=== PATIENT | female | born 1990 | race Hispanic/Latino ===

== ENCOUNTER 2016-11-15 11:23 | Day surgery (SDC) | payer OTHER ==
[~2016-11-15 11:23] MED LIST: NACL 0.9% 1000 ML 1,000 ML IV SCH; PEPCID IV NR; VERSED IV NR
[2016-11-15] MEDS ORDERED: NORCO 5/325 PO PRN (13:16)
[2016-11-15] MEDS ORDERED: TORADOL IV PRN (13:16)
--- NOTE | 2016-11-15 13:21 | Anesthesia Consultation ---
Anesthesia Consult and Med Hx Date of service: 11/15/16 - Airway Anesthetic Teeth Evaluation: Good ROM Head & Neck: Adequate Mental/Hyoid Distance: Adequate Mallampati Class: Class II Intubation Access Assessment: Probably Good - Pulmonary Exam CTA: Yes - Cardiac Exam Cardiac Exam: RRR - Pre-Operative Health Status ASA Pre-Surgery Classification: ASA3 Proposed Anesthetic Plan: General - Pulmonary Hx Smoking: No Hx Asthma: Yes ( CHILD ONLY) Hx Sleep Apnea: No (SENDY PRE SCREEN HIGH RISK) - Cardiovascular System Hx Hypertension: No - Central Nervous System Hx Back Pain: Yes (FROM STONES) Hx Psychiatric Problems: Yes - Other Systems Hx Substance Use: Yes (OCC MARIJUANA) Hx Cancer: No Hx Obesity: Yes (MORBID, BMI > 40) - Additional Comments Anesthesia Medical History Comments: PONV
--- NOTE | 2016-11-15 13:21 | Anesthesia Day of Surgery ---
Anesthesia Day of Surgery - Day of Surgery Patient Examined: Yes Patient H&P Reviewed: Yes Patient is NPO: Yes
[2016-11-15] MEDS ORDERED: NACL BACTERIOSTATIC INFILTRATI ONE (13:29)
[2016-11-15] MEDS ORDERED: TRANSDERM-SCOP TD NR (14:00)
[2016-11-15] MEDS ORDERED: ANCEF/STERILE WATER 2 GM/20 ML IV NR (14:00)
[2016-11-15] MEDS ORDERED: REGLAN IV NR (14:00)
[2016-11-15] MEDS ORDERED: LACTATED RINGERS 1,000 ML ONE ×2 (14:01→14:55)
[2016-11-15] MEDS ORDERED: DIPRIVAN 10 MG/ML IV ONE (14:03)
[2016-11-15] MEDS ORDERED: XYLOCAINE MPF 2% ONE (14:03)
[2016-11-15] MEDS ORDERED: DILAUDID ONE (14:03)
[2016-11-15] MEDS ORDERED: LACTATED RINGERS 1,000 ML IV SCH ×2 (14:04→15:00)
--- NOTE | 2016-11-15 14:06 | Short Stay Summary ---
Short Stay Documentation Date of service: 11/15/16 - History H&P: obtained from office - Allergies and Medications Current Medications: Allergies No Known Allergies Allergy (Verified 11/14/16 11:33) Home Medications Medication Instructions Recorded Confirmed Last Taken Type FLUoxetine HCL [PROzac] 40 mg PO QDAY 11/14/16 11/14/16 11/15/16 10:00 History Oxycodone HCl/Acetaminophen 1 tab PO PRN PRN 11/14/16 11/14/16 11/15/16 10:00 History [Percocet 10/325 mg] Promethazine [Phenergan TAB] 25 mg PO Q6HR PRN 11/14/16 11/15/16 11/10/16 History Sulfamethoxazole/Trimethoprim 1 each PO BID 11/14/16 11/14/16 11/14/16 History [Bactrim DS TAB] Active Medications Cefazolin Sodium (Ancef/Sterile Water 2 Gm/20 Ml) 2 gm IV PREOP NR Stop: 11/15/16 23:59 Famotidine (Pepcid) 20 mg IV PREOP NR Stop: 11/15/16 23:00 Last Admin: 11/15/16 13:43 Dose: 20 mg Sodium Chloride (Nacl 0.9% 1000 Ml) 1,000 mls @ 75 mls/hr IV DIRECT SHYLA Last Admin: 11/15/16 13:35 Dose: 75 mls/hr Metoclopramide HCl (Reglan) 10 mg IV PREOP NR Stop: 11/15/16 23:59 Last Admin: 11/15/16 13:48 Dose: 10 mg Midazolam HCl (Versed) 1 mg IV PREOP NR Stop: 11/15/16 23:59 Last Admin: 11/15/16 13:50 Dose: 1 mg Morphine Sulfate (Morphine) 2 mg IV Q10MIN PRN PRN Reason: Pain, Moderate (4-6) Stop: 11/18/16 13:17 Scopolamine (Transderm-Scop) 1 each TD PREOP NR Stop: 11/16/16 13:59 Last Admin: 11/15/16 13:46 Dose: 1 each - Brief post op/procedure progress note Date of procedure: 11/15/16 Pre-op diagnosis: stefan uret stone 3mm, stefan renal stones Post-op diagnosis: same Procedure: cysto, rpg, stefan stent; 4.7 x26 right urs Anesthesia: GETA Findings: right no uret stone Surgeon: ANNEMARIE MEDINA Estimated blood loss: minimal Pathology: none Condition: stable - Hospital course Hospital course: orpacuhome - Disposition Condition at discharge: Good Disposition: DC-01 TO HOME OR SELFCARE Short Stay Discharge Plan Activity: advance as tolerated Diet: advance as tolerated Follow up with: ANNEMARIE MEDINA MD [Staff Physician] - 7 Days Prescriptions: Oxycodone HCl/Acetaminophen [Percocet 10/325 mg] 0.5 - 1 each PO Q6HR PRN #30 tablet PRN Reason: Pain Sulfamethoxazole/Trimethoprim [Bactrim DS TAB] 1 each PO BID #10 tablet
[2016-11-15] MEDS ORDERED: ePHEDrine SULFATE ONE (14:30)
[2016-11-15] MEDS ORDERED: ZOFRAN ONE (14:42)
[2016-11-15] MEDS: MORPHINE IV PRN ×2 (15:25→16:54)
[2016-11-15 16:35] LABS: Anion Gap 15 mmol/L; BUN/Creatinine Ratio 16.66; Blood Urea Nitrogen 10 mg/dL (7-17); Calcium 8.6 mg/dL (8.4-10.2); Carbon Dioxide 28 mmol/L (22-30); Glucose 87 mg/dL (65-100); Sodium 141 mmol/L (137-145)
[2016-11-15] MEDS ORDERED: PERCOCET 5/325 PO PRN (16:47)
[2016-11-15 17:16] VITALS: BP 122/66
--- NOTE | 2016-11-16 09:27 | Fluoroscopy Report ---
Retrograde pyelogram. History: Renal stones. Findings: An ovoid shaped stone is seen within the left kidney. Opacification of the left i system demonstrates normal collecting elements with the stone in the lower pole collecting system. The left ureter is normal. The right calyceal system is unremarkable. The right ureter is normal in caliber. On the final image, bilateral ureteral stents are demonstrated in satisfactory position.
--- NOTE | 2016-12-02 11:41 | Operative Report ---
PREOPERATIVE DIAGNOSIS: Bilateral ureteral stones. POSTOPERATIVE DIAGNOSIS: Bilateral ureteral stones. PROCEDURE: Cystoscopy, bilateral stent placement, right ureteroscopy. SURGEON: Faizan Love M.D. ANESTHESIA: General. SPECIMENS: None. ESTIMATED BLOOD LOSS: Minimal. COMPLICATIONS: None. FINDINGS: No right ureteral stone. CLINICAL INDICATIONS: Counseled RCBA, antibiotics, SCDs. The patient has a history of going to [facility] 2 to 3 times, 3 times, had a CT done with stones identified in the right ureter. She has main complaints of right flank pain. Also, there was stone what appeared to be likely in the left intramural ureter with minimal pain on this side. She was counseled ___ the plan was for a smaller stent with procedure. DESCRIPTION OF PROCEDURE: The patient had antibiotics, SCDs, was transferred to OR suite in supine position, anesthesia, dorsal lithotomy, prepped and draped in standard fashion. A 22 Vietnamese scope passed. Pancystoscopy 30 and 70 degree lens, no tumors or lesions. Left retrograde pyelogram demonstrated normal left distal ureter, proximal ureter, renal pelvis calyces. Right retrograde demonstrates mild right hydroureter, no air filling defect with very small stone, on reports these stones were only 2-3 mm and the patient was having some pain before procedure. At this point, a Glidewire was passed at the left renal pelvis. A 4.7-Vietnamese stent was passed good proximal and distal stent the right side wire had been passed. A rigid ureteroscope wire was passed up the ureter. No stones identified passed up to the renal pelvis, no significant stones identified and passive dilation. At this point, the scope was withdrawn and a 4.7 Vietnamese stent was passed over the wire under direct fluoroscopic visualization when the wire and string removed, nice proximal and distal J. Bladder irrigated, scope was removed and drained. The patient awakened, transferred to PACU in good and stable condition. PLAN: The patient is staged for future left ureteroscopy as well as stent removals on the right and left. JOB# [id number] ATS/NTS
== END 2016-11-15 17:10 | disposition home or self-care (01) ==
LOC: OR 11:23
PROVIDERS: ATTEND Urology
DX: N20.1 Calculus of ureter (principal); F12.90 Cannabis use, unspecified, uncomplicated; F15.90 Other stimulant use, unspecified, uncomplicated; E11.9 Type 2 diabetes mellitus without complications; E66.01 Morbid (severe) obesity due to excess calories; Z68.43 Body mass index [BMI] 50.0-59.9, adult; Z98.890 Other specified postprocedural states; Z79.84 Long term (current) use of oral hypoglycemic drugs; Z82.61 Family history of arthritis; Z82.3 Family history of stroke; Z80.3 Family history of malignant neoplasm of breast; Z82.0 Family history of epilepsy and other diseases of the nervous system; Z82.49 Family history of ischemic heart disease and other diseases of the circulatory system; Z84.1 Family history of disorders of kidney and ureter; Z83.3 Family history of diabetes mellitus; Z82.69 Family history of other diseases of the musculoskeletal system and connective tissue
CPT/HCPCS: 36415; 52332; 74420; 80048; 81025; 82962; C1726; C1758; C1769; C2617; J0690; J1170; J2250; J2270; J2405; J2704; J2765; J7030; J7120; Q9967

== ENCOUNTER 2016-11-29 14:17 | Day surgery (SDC) | payer OTHER ==
[~2016-11-29 14:17] MED LIST changes: -PEPCID IV NR; +PEPCID PO NR
--- NOTE | 2016-11-29 16:10 | Anesthesia Day of Surgery ---
Anesthesia Day of Surgery - Day of Surgery Patient Examined: Yes Patient H&P Reviewed: Yes Patient is NPO: Yes
--- NOTE | 2016-11-29 16:10 | Anesthesia Consultation ---
Anesthesia Consult and Med Hx Date of service: 11/29/16 - Airway Anesthetic Teeth Evaluation: Good ROM Head & Neck: Adequate Mental/Hyoid Distance: Adequate Mallampati Class: Class III Intubation Access Assessment: Possibly Difficult - Pre-Operative Health Status ASA Pre-Surgery Classification: ASA3 Proposed Anesthetic Plan: General - Pulmonary Hx Smoking: Yes (Quit smoking in 2016) Hx Asthma: Yes ( CHILD ONLY) Hx Sleep Apnea: No (SENDY PRE SCREEN HIGH RISK) - Cardiovascular System Hx Hypertension: No - Central Nervous System Hx Back Pain: Yes (FROM STONES) Hx Psychiatric Problems: Yes (depression/anxiety) - Endocrine Hx Renal Disease: Yes (bilateral kidney stones) Hx Non-Insulin Dependent Diabetes: Yes (diet controlled) - Other Systems Hx Substance Use: Yes (OCC MARIJUANA) Hx Cancer: No Hx Obesity: Yes (MORBID, BMI 59.4) - Additional Comments Anesthesia Medical History Comments: PONV
[2016-11-29] MEDS ORDERED: NACL BACTERIOSTATIC INFILTRATI ONE (16:47)
[2016-11-29] MEDS ORDERED: NACL 0.9% 1000 ML 1,000 ML IV SCH (17:00)
[2016-11-29] MEDS ORDERED: PEPCID IV NR (17:00)
[2016-11-29] MEDS ORDERED: TRANSDERM-SCOP TD NR (17:00)
--- NOTE | 2016-11-29 17:56 | Short Stay Summary ---
Short Stay Documentation Date of service: 11/29/16 - History H&P: obtained from office - Allergies and Medications Current Medications: Allergies No Known Allergies Allergy (Verified 11/14/16 11:33) Home Medications Medication Instructions Recorded Confirmed Last Taken Type FLUoxetine HCL [PROzac] 40 mg PO QDAY 11/14/16 11/29/16 11/28/16 History Oxycodone HCl/Acetaminophen 1 tab PO PRN PRN 11/14/16 11/29/16 11/29/16 12:00 History [Percocet 10/325 mg] Active Medications Cefazolin Sodium (Ancef/Sterile Water 2 Gm/20 Ml) 2 gm IV PREOP NR Famotidine (Pepcid) 20 mg IV PREOP NR Stop: 11/29/16 23:59 Last Admin: 11/29/16 17:00 Dose: 20 mg Sodium Chloride (Nacl 0.9% 1000 Ml) 1,000 mls @ 100 mls/hr IV DIRECT SHYLA Last Admin: 11/29/16 16:55 Dose: 100 mls/hr Midazolam HCl (Versed) 2 mg IV PREOP NR Stop: 11/29/16 23:59 Last Admin: 11/29/16 17:01 Dose: 2 mg Scopolamine (Transderm-Scop) 1 each TD PREOP NR Stop: 11/30/16 16:59 Last Admin: 11/29/16 16:58 Dose: 1 each - Brief post op/procedure progress note Date of procedure: 11/29/16 Pre-op diagnosis: stefan uret stones, stefan stents Post-op diagnosis: same Procedure: cysto rt stent removal, left replacement w/ string; left urs, stefan rpg Anesthesia: GETA Findings: no uret stone Surgeon: ANNEMARIE MEDINA Estimated blood loss: minimal Pathology: none Condition: stable - Hospital course Hospital course: orpac[facility]ome - Disposition Condition at discharge: Good Disposition: DC-01 TO HOME OR SELFCARE Short Stay Discharge Plan Activity: advance as tolerated Diet: advance as tolerated Additional Instructions: REMOVE SCOPOLAMINE PATCH FROM BEHIND RIGHT EAR. Follow up with: ANNEMARIE MEDINA MD [Staff Physician] - 7 Days Prescriptions: Oxycodone HCl/Acetaminophen [Percocet 10-325 mg] 0.5 - 1 each PO Q6HR PRN #30 tablet PRN Reason: Pain Sulfamethoxazole/Trimethoprim [Bactrim DS TAB] 1 each PO BID #10 tablet
[2016-11-29] MEDS ORDERED: ANCEF/STERILE WATER 2 GM/20 ML IV NR (18:00)
[2016-11-29] MEDS: DILAUDID IV PRN ×4 (18:17→20:25)
[2016-11-29] MEDS ORDERED: DILAUDID ONE ×2 (18:18→18:43)
[2016-11-29] MEDS ORDERED: XYLOCAINE MPF 2% ONE (18:44)
[2016-11-29] MEDS ORDERED: DIPRIVAN 10 MG/ML IV ONE (18:44)
[2016-11-29] MEDS ORDERED: OMNIPAQUE 300 MG/50 ML (CATH LAB) IV ONE (19:16)
[2016-11-29] MEDS ORDERED: WATER FOR IRRIG STERILE IR ONE (19:17)
[2016-11-29] MEDS ORDERED: PERCOCET 5/325 PO PRN (19:53)
[2016-11-29] MEDS ORDERED: ZOFRAN IV PRN (19:53)
[2016-11-29] MEDS ORDERED: ZOFRAN ONE (20:13)
[2016-11-29] MEDS ORDERED: TORADOL ONE (20:13)
[2016-11-29] MEDS ORDERED: NACL 0.9% 1000 ML 1,000 ML ONE (20:15)
--- NOTE | 2016-11-29 21:21 | Post Anesthesia Evaluation ---
- Post Anesthesia Evaluation Patient Participated: Yes Airway Patent: Yes Stable Respiratory Function: Yes Temp > 96.8F: Yes Pain Manageable: Yes Adequeate Hydration: Yes Anesthesia Complications: No Block Receding Appropriately: Not Applicable
[2016-11-29 22:05] VITALS: BP 116/50
--- NOTE | 2016-11-30 11:32 | Fluoroscopy Report ---
Retrograde pyelogram: Prior contrast bilateral internal stents are present. There is a calculus seemingly overlying the left mid kidney. Injection of contrast into the right ureter demonstrated a generally unremarkable ureter and intrarenal collecting system. A ureteroscope was passed on the left with wire into the kidney. Injection of contrast demonstrated that the calculus overlies a lower pole calyx. A left internal stent was left in place.
--- NOTE | 2016-12-02 11:24 | Operative Report ---
PREOPERATIVE DIAGNOSES: Bilateral renal stones, bilateral ureteral stones. POSTOPERATIVE DIAGNOSES: Bilateral renal stones, bilateral ureteral stones. PROCEDURES: Right stent removal, right retrograde pyelogram, left stent removal and replacement, left ureteroscopy. SURGEON: Faizan Love MD ANESTHESIA: General. SPECIMENS: None. ESTIMATED BLOOD LOSS: Minimal. COMPLICATIONS: None. FINDINGS: No left ureteral stone. CLINICAL INDICATIONS: Counseled on RCBA, antibiotics, SCDs. The patient was even counseled on options of treating the renal stones with shockwave lithotripsy while she has a stent in. She did not want to do that and wanted to proceed with just trying to get her system cleared and stents out. DESCRIPTION OF PROCEDURE: Transferred to OR suite in supine position, anesthesia, dorsal lithotomy, prepped and draped in standard fashion. A 22-Kinyarwanda scope passed. Right stent was grasped, pulled out intact. Right retrograde pyelogram demonstrated prompt drainage from the entire ureter very quickly from all the way from the UPJ. At this point, bladder passed adjacent to left stent. Stent grasped, pulled out and intact. Rigid ureteroscope passed to pass the scope up the ureter all the way up to the UPJ, just beyond the UPJ and no stones were identified. Scope was slowly withdrawn. Wire was backloaded over the scope and a 4.7 Kinyarwanda stent was passed over the wire under direct and fluoroscopic visualization. When wire was removed, nice proximal and distal ____, string was left in place and secured to the suprapubic area with Steri-Strips. The patient was awakened and transferred to PACU in good and stable condition. JOB# [id number] ATS/NTS
== END 2016-11-29 21:20 | disposition home or self-care (01) ==
LOC: OR 14:17
PROVIDERS: ATTEND Urology
DX: N20.2 Calculus of kidney with calculus of ureter (principal); F12.90 Cannabis use, unspecified, uncomplicated; E66.01 Morbid (severe) obesity due to excess calories; Z68.43 Body mass index [BMI] 50.0-59.9, adult; Z87.891 Personal history of nicotine dependence
CPT/HCPCS: 52332; 74420; 82962; A4217; J0690; J1170; J1885; J2250; J2405; J2704; J7030; Q9967; 81025; C1726; C1758; C1769; C2617

== ENCOUNTER 2016-12-08 06:42 | Emergency (ER) | payer OTHER ==
[2016-12-08 07:05] VITALS: BP 142/96
[2016-12-08 07:49] LABS: Basophils % (Auto) 0.4 % (0.0-1.8); Eosinophils % (Auto) 2.2 % (0.0-4.3); Hemoglobin 13.1 gm/dl (10.1-14.3); Mean Corpuscular HGB Conc 32 % (30-34); Mean Corpuscular Volume 80 fl (79-97); Platelet Count 263 K/mm3 (140-440); Red Cell Distribution Width 14.5 % (13.2-15.2); White Blood Count 13.9 K/mm3 (4.5-11.0)
[2016-12-08 08:07] LABS: Anion Gap 19 mmol/L; BUN/Creatinine Ratio 16.25; Blood Urea Nitrogen 13 mg/dL (7-17); Calcium 10.2 mg/dL (8.4-10.2); Carbon Dioxide 25 mmol/L (22-30); Chloride 100.1 mmol/L (98-107); Glucose 101 mg/dL (65-100); Mean Corpuscular Hemoglobin 26 pg (28-32); Potassium 4.1 mmol/L (3.6-5.0); Sodium 140 mmol/L (137-145)
[2016-12-08 08:12] LABS: Bacteria,Urine 2+ /HPF (Negative); Bilirubin,Urine NEG (Negative); Blood,Urine LG (Negative); Ketones,Urine NEG (Negative); Leukocyte Esterase,Urine MOD (Negative); Mucus,Urine 3+ /HPF; Nitrite,Urine NEG (Negative); Urobilinogen,Urine < 2.0 mg/dL (<2.0)
[2016-12-08 08:17] LABS: RBC,Urine > 182.0 /HPF (0.0-6.0); WBC,Urine > 182.0 /HPF (0.0-6.0)
== END 2016-12-08 13:38 | disposition left against medical advice (07) ==
LOC: ED 06:42
DX: R50.9 Fever, unspecified (principal); R11.10 Vomiting, unspecified; J45.909 Unspecified asthma, uncomplicated; E11.9 Type 2 diabetes mellitus without complications; K21.9 Gastro-esophageal reflux disease without esophagitis; Z53.21 Procedure and treatment not carried out due to patient leaving prior to being seen by health care provider
CPT/HCPCS: 36415; 80048; 81001; 81025; 85025